=== PATIENT | male | born 1960 | race Caucasian/White ===

== ENCOUNTER 2016-06-22 09:22 | Emergency (ER) | payer BC ==
[~2016-06-22] VITALS: Ht 170.2 cm; Wt 79.9 kg
[~2016-06-22 09:22] MED LIST: BACT800T5 PO; CEPH500C3 PO
[2016-06-22 09:25] VITALS: BP 149/101; PULSE 69; RESP 14; TEMP 98.1; O2SAT 98
[2016-06-22] MEDS ORDERED: DIPHTH/TETANUS/ACEL PERTUSSIS (BOOSTER) 0.5 ML VIAL/PFS IM ONE (10:15)
[2016-06-22] MEDS ORDERED: CEPH-460 PO (10:20)
--- NOTE | 2016-06-22 10:20 | PD ---
HPI Chief Complaint: Laceration/Skin Injury Time Seen by Provider: 10:09 Travel History International Travel<30 days: No Contact w/Intl Traveler<30days: No Traveled to known affect area: No History of Present Illness HPI Patient presents with concerns of left ring finger laceration. Reports getting his finger tangled up in a ratchet strap approximately 20 hours ago. Unknown tetanus. Practicing general wound care. Presents for evaluation. PFSH Past Medical History Cardiovascular Problems: Yes (PAST HX) Diminished Hearing: No Social History Alcohol Use: Yes Tobacco Use: No Substance Use: No Allergies-Medications (Allergen,Severity, Reaction): Coded Allergies: No Known Allergies (Unverified , 06/22/16) Reported Meds & Prescriptions Reported Meds & Active Scripts Active No Active Prescriptions or Reported Medications Review of Systems General / Constitutional: No: Fever Eyes: No: Visual changes HENT: No: Headaches Cardiovascular: No: Chest Pain or Discomfort Respiratory: No: Shortness of Breath Gastrointestinal: No: Abdominal Pain Genitourinary: No: Dysuria Musculoskeletal: No: Pain Skin: No Rash Neurologic: No: Weakness Psychiatric: No: Depression Endocrine: No: Polydipsia Hematologic/Lymphatic: No: Easy Bruising Physical Exam Narrative GENERAL: Well-nourished, well-developed patient. SKIN: Focused skin assessment warm/dry. HEAD: Normocephalic. EYES: No scleral icterus. No injection or drainage. NECK: Supple, trachea midline. No JVD or lymphadenopathy. CARDIOVASCULAR: Regular rate and rhythm without murmurs, gallops, or rubs. RESPIRATORY: Breath sounds equal bilaterally. No accessory muscle use. GASTROINTESTINAL: Abdomen soft, non-tender, nondistended. MUSCULOSKELETAL: No cyanosis, or edema. BACK: Nontender without obvious deformity. No CVA tenderness. Base of the Left ring finger palmar aspect, with a 1.5 similar laceration, variable depths, jagged edges but well approximated, no cellulitic change drainage or discharge, full range of motion Data Data Last Documented VS Vital Signs Date Time Temp Pulse Resp B/P Pulse Ox O2 Delivery O2 Flow Rate FiO2 06/22/16 09:25 98.1 69 14 149/101 98 Orders [id number] (Booster) Inj (Boostrix (06/22/16 10:15) Wound Care (06/22/16 10:10) MDM Medical Decision Making Medical Screen Exam Complete: Yes Emergency Medical Condition: Yes Differential Diagnosis Left ring finger laceration, cellulitis, fracture Narrative Course Assessment and plan discussed with patient at bedside. Secondary to length of time since the laceration will let the wound heal by secondary intention with oral antibiotics. Tetanus updated. Wound cleaned and dressed Diagnosis Primary Impression: Laceration of left ring finger Patient Instructions: General Instructions Additional Instructions: Encouraged keep the wound clean and dry encouraged topical antibiotic and completion of oral anabiotic's. Follow-up with PCP to assess wound healing Med/Other Pt SpecificInfo: Prescription(s) given Scripts Cephalexin (Keflex)500 Mg Xsh153 Mg PO Q12H #20 CAP Ref 0 Prov:Sarwat Nguyen MD 06/22/16 Disposition: 01 DISCHARGE HOME Condition: Good Sarwat Nguyen MD Jun 22, 2016 10:20
== END 2016-06-22 10:28 | disposition home or self-care (01) ==
LOC: PHEFT 09:22
DX: S61.215A Laceration without foreign body of left ring finger without damage to nail, initial encounter (principal); W45.8XXA Other foreign body or object entering through skin, initial encounter; Z23 Encounter for immunization
CPT/HCPCS: 90471; 90715